=== PATIENT | female | born 1985 | race Two or more races ===

== ENCOUNTER 2025-03-25 05:19 | Emergency (ER) | payer OTHER ==
[~2025-03-25] VITALS: Ht 157.5 cm; Wt 115.7 kg
[2025-03-25] MEDS ORDERED: COZAAR50 MG (05:43)
[2025-03-25 09:47] LABS: BASO % 0.2 % (0.1-1.2); EOS # 0.02 (0.04-0.54); EOS % 0.2 % (0.7-7.0); LYMPH # 1.44 (1.18-3.74); LYMPH % 15.8 % (19.3-53.1); MEAN PLATELET VOLUME 10.90 fl (9.4-12.4); MONO # 0.39 (0.24-0.82); MONO % 4.3 % (4.7-12.5); NEUT # 7.19 (1.56-6.13); NEUT % 79.2 % (34.0-71.1); RED CELL DISTRIBUTION WIDTH 16.3 % (11.6-14.4)
[2025-03-25 10:03] LABS: COVID-19 AG NEGATIVE (NEGATIVE)
[2025-03-25] MEDS ORDERED: ZITHROMAX TRI-500 MG PO (11:22)
[2025-03-25] MEDS ORDERED: GILTUSS COUGH-118 M1 PO (11:22)
[2025-03-25] MEDS ORDERED: HYDROXYZINE PAM50 MG PO (11:22)
== END 2025-03-25 11:32 | disposition home or self-care (01) ==
LOC: ER 05:29
PROVIDERS: Preventive Medicine Public Health & General Preventive Medicine
DX: F41.9 Anxiety disorder, unspecified (principal); J06.9 Acute upper respiratory infection, unspecified; G47.00 Insomnia, unspecified; Z20.822 Contact with and (suspected) exposure to COVID-19; I10 Essential (primary) hypertension